=== PATIENT | male | born 1995 | race African-American/Black ===

== ENCOUNTER 2017-01-27 08:05 | Emergency (ER) | payer BC ==
[~2017-01-27] VITALS: Ht 188 cm; Wt 72.6 kg
[2017-01-27 08:13] VITALS: BP 124/90; PULSE 92; RESP 16; TEMP 97.4; O2SAT 99
--- NOTE | 2017-01-27 08:15 | NUR ---
Patient to ER bed 8 to gown for evaluation. Side rails up. Report given to Avelino BELLO.
--- NOTE | 2017-01-27 08:21 | NUR ---
ER Dr. Emmanuel at bedside examining patient.
--- NOTE | 2017-01-27 08:22 | NUR ---
Pt presents to Ed c/o vomiting since last evening w/history of IDDM. Pt AAOx4. VS WNL. BS 215.
[2017-01-27] MEDS ORDERED: MAG-AL HYDROX/SIMETH 30 ML UDC PO ONE (08:30)
[2017-01-27] MEDS ORDERED: BELLADONNA ALKALOIDS/PHENOBARB 5 ML UDC PO ONE (08:30)
[2017-01-27] MEDS ORDERED: ONDANSETRON HCL 4 MG/5 ML UDC PO ONE (08:30)
[2017-01-27 08:43] LABS: HEMATOCRIT 45.4 % (36-54); HEMOGLOBIN 15.4 g/dL (14.0-18.0); MEAN CORPUSCULAR HEMOGLOBIN 28 pg (27-31); MEAN CORPUSCULAR HGB CONC 34 % (32-36); MEAN CORPUSCULAR VOLUME 83 fL (79.0-98.0); PLATELET COUNT (AUTO) 223 K/uL (130-430); RED BLOOD CELL COUNT(AUTO) 5.48 MIL/uL (4.2-6.2); RED CELL DISTRIBUTION WIDTH 12.6 % (9.0-15.0); WHITE BLOOD COUNT (AUTO) 7.2 K/uL (4.5-11.0)
[2017-01-27] MEDS ORDERED: ONDANSETRON 4 MG ODT TAB PO ONE (08:45)
[2017-01-27 08:56] LABS: CALCIUM 8.8 mg/dL (8.4-11.0); CREATININE 0.95 mg/dL (0.55-1.30); POTASSIUM 4.4 mmol/L (3.5-5.1)
--- NOTE | 2017-01-27 09:00 | NUR ---
Pt tolerated medication well.
[2017-01-27 09:01] LABS: ALBUMIN 3.9 g/dL (3.4-4.8); TOTAL BILIRUBIN 0.5 mg/dL (0.0-1.0); TOTAL PROTEIN, SERUM 7.1 g/dL (6.4-8.3)
[2017-01-27 09:05] LABS: ATYPICAL LYMPHOCYTES % 0 % (0-0); BAND % (MANUAL) 4 % (0-6); BASOPHILS % (MANUAL) 0 % (0-2); EOSINOPHILS % (MANUAL) 0 % (0-7); LYMPHOCYTES % (MANUAL) 6 % (20-46); MONOCYTES % (MANUAL) 15 % (0-11)
--- NOTE | 2017-01-27 09:45 | NUR ---
Pt given 6oz of fluid for PO challenge.
--- NOTE | 2017-01-27 10:15 | NUR ---
Pt tolerated PO challenge well.
[2017-01-27 11:29] VITALS: BP 126/90; PULSE 92; RESP 16; TEMP 97.4; O2SAT 99
== END 2017-01-27 11:29 | disposition home or self-care (01) ==
LOC: SED 08:05
DX: R10.13 Epigastric pain (principal); R11.10 Vomiting, unspecified; E11.9 Type 2 diabetes mellitus without complications
CPT/HCPCS: 36415; 80053; 82962; 83690; 85007; 85027; 99284; Q0162